=== PATIENT | female | born 1970 | race African-American/Black ===

== ENCOUNTER 2021-10-11 08:16 | Day surgery (SDC) | payer BC ==
[2021-10-10 14:28] VITALS: BMI 21.9
[2021-10-11] MEDS ORDERED: PROPOFOL 20 ML ONE (08:20)
[2021-10-11 09:44] VITALS: BP 118/73; PULSE 68; TEMP 97.8
== END 2021-10-11 10:10 | disposition home or self-care (01) ==
LOC: FASU-ENDO 08:16
PROVIDERS: ATTEND Internal Medicine Gastroenterology
PROC: 0DBN8ZX Excision of Sigmoid Colon, Via Natural or Artificial Opening Endoscopic, Diagnostic (ICD-10-PCS; principal; 2021-10-11 09:03)
DX: Z12.11 Encounter for screening for malignant neoplasm of colon (principal); D12.5 Benign neoplasm of sigmoid colon
CPT/HCPCS: 88305-TC